=== PATIENT | female | born 1935 | race Caucasian/White ===

== ENCOUNTER 2023-03-09 15:29 | Outpatient (RCR) | payer MEDICARE, BC ==
[~2023-03-09 15:29] MED LIST: ASPIRIN 81M81 MG/TA2 PO; B-12 500 MCG PO; CALCIUM+D PO; CLARITIN 1010 MG/TAB; FOLIC ACID 11 MG/TA1 PO; FOSAMAX PO; GINKO PO; GLUCOSAMINE PO; HCTZ 25MG TAB25 MG PO; LEXAPRO 10MG10 MG PO; LIPITOR 40MG TA40 MG PO; LISINOPRIL/HCTZ1 TAB PO; METHOTREXA2.5 MG/TAB PO; MVI PO; OMEGA 3 PO; OMNICEF 300MG300 MG PO; RED YEAST RICE PO; SINGULAIR 110 MG/TAB; SODIUM BICARBO650 MG PO; SYNTHROID0.1 MG/TAB PO; THE MEDICINE S200 M2 PO; TUMERIC PO; VIT D3 PO; VITAMIN B12 IM; VITAMIN C1 TAB PO
== END 2023-03-10 | disposition home or self-care (01) ==
LOC: COL.CR
DX: Z48.812 Encounter for surgical aftercare following surgery on the circulatory system (principal); Z95.2 Presence of prosthetic heart valve